=== PATIENT | female | born 1985 | race American Indian/Alaskan Native ===

== ENCOUNTER → 2021-10-06 | Outpatient (CLI) | payer OTHER | END | disposition home or self-care (01) | LOC: SLR 11:00 | PROVIDERS: ATTEND Internal Medicine | DX: G47.30 Sleep apnea, unspecified (principal) | CPT/HCPCS: 95810 ==

== ENCOUNTER 2021-12-13 10:30 | Outpatient (CLI) | payer OTHER ==
--- NOTE | 2021-12-13 12:54 | Ultrasound Report ---
ULTRASOUND RENAL INDICATION / CLINICAL INFORMATION: I10. Essential hypertension COMPARISON: None available. FINDINGS: RIGHT KIDNEY: Length = 11.9 cm. - Echogenicity: Normal. - Parenchymal Thickness: Normal. - Hydronephrosis: None. - Cyst / Mass: None. - Stones: None seen. LEFT KIDNEY: Length = 11.9 cm. - Echogenicity: Normal. - Parenchymal Thickness: Normal. - Hydronephrosis: None. - Cyst / Mass: None. - Stones: None seen. URINARY BLADDER: Partially collapsed. No significant abnormality identified. FREE FLUID: None. ADDITIONAL FINDINGS: Increased hepatic echogenicity. IMPRESSION: 1. No significant sonographic abnormality of the kidneys. 2. Diffusely echogenic appearance of the liver, most commonly seen with steatosis. Scribed by: Deisi Flor RDMS, RAYMOND, ANABEL Scribed: 12/13/2021 11:30 AM I have reviewed the images, agree with this report, and edited this report as needed. Signer Name: Christian Bear MD Signed: 12/13/2021 12:50 PM Workstation Name: [id number]
== END 2021-12-13 10:31 | disposition home or self-care (01) ==
LOC: US 10:30
PROVIDERS: ATTEND Internal Medicine Hematology & Oncology
DX: I10 Essential (primary) hypertension (principal)
CPT/HCPCS: 76770